=== PATIENT | male | born 1950 | race Hispanic/Latino ===

== ENCOUNTER 2022-03-28 07:00 | Observation (INO) | payer MEDICARE ==
[2022-03-24 11:41] LABS: BASOPHILS % (AUTO) 0.8 % (0.0-5.0); EOSINOPHILS % (AUTO) 0.8 % (0.0-8.0); HEMATOCRIT 44.9 % (42-54); LYMPHOCYTES % (AUTO) 41.8 % (21.0-51.0); MEAN CORPUSCULAR HEMOGLOBIN 29.2 pg (27.0-33.0); MEAN CORPUSCULAR VOLUME 88.7 fL (79-99); MONOCYTES % (AUTO) 9.1 % (3.0-13.0); NEUTROPHILS % (AUTO) 47.2 % (40.0-77.0); PLATELET COUNT (AUTO) 129 K/uL (130-400); RED BLOOD CELL COUNT(AUTO) 5.06 MIL/uL (4.50-6.20); RED CELL DISTRIBUTION WIDTH 13.6 % (11.0-15.5); WHITE BLOOD COUNT (AUTO) 7.3 K/uL (4.8-10.8)
[2022-03-24 11:59] LABS: CREATININE 0.9 mg/dL (0.5-1.5); INR 1.09 (0.85-1.15); POTASSIUM 3.6 mmol/L (3.5-5.1); PROTHROMBIN TIME 11.8 SEC (9.6-11.6)
[2022-03-24 12:01] LABS: PARTIAL THROMBOPLASTIN TIME 27.6 SEC (26.3-35.5)
[2022-03-27 11:44] VITALS: BP 149/78
[2022-03-28] VITALS (26 sets, daily range): BP systolic 111–154; BP diastolic 65–96
[~2022-03-28] VITALS: Ht 162.6 cm; Wt 77.4 kg
[~2022-03-28 07:00] MED LIST: AEC81 PO; ATOR40TA69 PO; FLUT1AER IH; MELO5CAP3 PO; MONT-39 PO; VERA240T95 PO
[2022-03-28] MEDS ORDERED: LACTATED RINGERS 1000ML 1,000 ML IV ONE (07:04)
[2022-03-28] MEDS ORDERED: CLINDAMYCIN IVPB 600MG/50ML 50 ML IV ONE (07:05)
[2022-03-28] MEDS ORDERED: TRANEXAMIC ACID 1000MG/10ML ONE (07:07)
[2022-03-28] MEDS ORDERED: ROCURONIUM 10MG/1ML SYR 10 MG/ML ML ONE (09:07)
[2022-03-28] MEDS ORDERED: PROPOFOL 10 MG/ML 20ML VIAL IV ONE (09:07)
[2022-03-28] MEDS ORDERED: FENTANYL CITRATE PF 50 MCG/1 ML 2ML VIAL ONE ×2 (09:07→10:18)
[2022-03-28] MEDS ORDERED: ROPIVACAINE 0.5% 5MG/ML 30ML IJ ONE (09:20)
[2022-03-28] MEDS: 0.9%NACL 1000ML 1,000 ML IV SCH ×2 (09:30→21:11)
[2022-03-28] MEDS ORDERED: MORPHINE 4 MG SYG IVP PRN (09:30)
[2022-03-28] MEDS: ACETAMINOPHEN 500 MG TABLET PO SCH ×3 (09:30→23:33)
[2022-03-28] MEDS ORDERED: ONDANSETRON 4MG INJ IVP PRN (09:30)
[2022-03-28] MEDS ORDERED: FERROUS FUMARATE 324 MG TABLET PO PRN (09:30)
[2022-03-28] MEDS ORDERED: HYDROCODONE/ACETAMINOPHEN 5/325 MG TAB PO PRN (09:30)
[2022-03-28] MEDS ORDERED: CLINDAMYCIN IVPB 600MG/50ML 50 ML IV SCH (09:30)
[2022-03-28] MEDS ORDERED: ONDANSETRON 4MG INJ ONE (10:04)
[2022-03-28] MEDS ORDERED: NEOSTIGMINE 5MG/5ML SYR IV ONE (11:08)
[2022-03-28] MEDS ORDERED: HYDROMORPHONE 1 MG INJ ONE (11:49)
[2022-03-28] MEDS: KETOROLAC 15MG/ML VIAL (15MG/ML) IV PRN (11:59)
[2022-03-28] MEDS: TRAMADOL HCL 50 MG TABLET PO SCH ×3 (12:00→23:32)
[2022-03-28] MEDS ORDERED: MEPERIDINE-PF 25 MG/ML SYG ONE (12:03)
[2022-03-28] MEDS: HYDROCODONE/ACETAMINOPHEN 10/325 MG TAB PO PRN (14:12)
[2022-03-28] MEDS: FAMOTIDINE 20MG TAB PO SCH (21:11)
[2022-03-28] MEDS: ASPIRIN 81 MG EC TAB PO SCH (21:11)
[2022-03-29] VITALS: BP 131/76
[2022-03-29 04:00] VITALS: BP 136/77
[2022-03-29 04:21] LABS: HEMATOCRIT 35.7 % (42-54); MEAN CORPUSCULAR HEMOGLOBIN 29.1 pg (27.0-33.0); MEAN CORPUSCULAR HGB CONC 33.1 g/dL (32.0-36.0); MEAN CORPUSCULAR VOLUME 87.9 fL (79-99); RED BLOOD CELL COUNT(AUTO) 4.06 MIL/uL (4.50-6.20); RED CELL DISTRIBUTION WIDTH 13.5 % (11.0-15.5); WHITE BLOOD COUNT (AUTO) 11.2 K/uL (4.8-10.8)
[2022-03-29 04:34] LABS: CREATININE 0.9 mg/dL (0.5-1.5); POTASSIUM 3.4 mmol/L (3.5-5.1)
[2022-03-29] MEDS: TRAMADOL HCL 50 MG TABLET PO SCH ×2 (05:16→13:16)
[2022-03-29] MEDS: KETOROLAC 15MG/ML VIAL (15MG/ML) IV PRN (06:50)
[2022-03-29 08:58] VITALS: BP 151/86
[2022-03-29] MEDS ORDERED: POLYETHYLENE GLYCOL 3350 17 GM POWD.PACK PO SCH (09:00)
[2022-03-29] MEDS ORDERED: VERAPAMIL HCL 240 MG SRTAB PO SCH (09:00)
[2022-03-29] MEDS ORDERED: MONTELUKAST SODIUM 10 MG TAB PO SCH (09:00)
[2022-03-29] MEDS ORDERED: FLUTICASONE/VILANTEROL 1 EACH AER.POW.BA IH SCH (09:00)
[2022-03-29] MEDS: ASPIRIN 81 MG EC TAB PO SCH (09:12)
[2022-03-29] MEDS: ACETAMINOPHEN 500 MG TABLET PO SCH (09:14)
[2022-03-29] MEDS: FAMOTIDINE 20MG TAB PO SCH (09:14)
[2022-03-29] MEDS: HYDROCODONE/ACETAMINOPHEN 10/325 MG TAB PO PRN (09:18)
[2022-03-29 12:00] VITALS: BP 159/82
[2022-03-31] MEDS ORDERED: BISACODYL 10 MG SUPP.RECT RC PRN (09:30)
== END 2022-03-29 19:37 | disposition home or self-care (01) ==
LOC: DAH 07:00 → DAHIP 07:01 → DAH 07:01 → 4DH 12:31
PROVIDERS: ADMIT Orthopaedic Surgery; ATTEND Orthopaedic Surgery
DX: M17.11 Unilateral primary osteoarthritis, right knee (principal); Z20.822 Contact with and (suspected) exposure to COVID-19; M21.161 Varus deformity, not elsewhere classified, right knee; I10 Essential (primary) hypertension; J45.909 Unspecified asthma, uncomplicated; Z79.899 Other long term (current) drug therapy
CPT/HCPCS: 80048 ×2; 85025; 85610; 85730; 87426; 36415 ×2; 93005; 97039 ×4; 27447; 96374; 76942; 64447; 97161; 96376; 85027; 97116 ×2; 97530 ×2; A6260; G0378 ×31; A4663; J7030; A4649 ×3; C1776; J7120; J3010 ×2; J1170; J3490 ×2; J2710; J2704; J2405 ×2; J2175; J2795; J1885 ×2; G0168; A4930; A6255; A6254; A5120; A4215; A4223; A4222; A4221